=== PATIENT | male | born 1975 | race Caucasian/White ===

== ENCOUNTER 2020-03-07 01:14 | Emergency (ER) | payer OTHER, SELFPAY ==
[2020-03-07 01:15] VITALS: BP 138/91; PULSE 89; RESP 17; TEMP 37.1; O2SAT 100; BMI 20.7
--- NOTE | 2020-03-07 01:27 | CT_ITS ---
We are attempting to reach an attending provider to discuss findings. An addendum with communication details will be sent when the communication is complete. STUDY: CT SOFT TISSUE NECK WITH CONTRAST REASON FOR EXAM: Male, 44 years old. LT SIDED SORE THROAT AND DIFFICULTY SWALLOWING -- HX:SMOKER RADIATION DOSAGE (If Supplied By Facility): CTDIvol = ( 13.83 ) mGy, DLP = ( 404.38 ) mGycm TECHNIQUE: The patient was scanned in a multi-detector CT scanner. High resolution transaxial imaging was performed following intravenous administration of IV 75mL Isovue-370. Sagittal and coronal images were reconstructed. Individualized dose optimization techniques were used for this CT. COMPARISON: None. FINDINGS: Normal bilateral parotid glands. Normal bilateral national secretary spaces. Normal bilateral carotid spaces. Normal bilateral sublingual and submandibular glands and spaces. Subcentimeter short axis cervical chain lymph nodes. There is heterogeneous enlargement of the left tonsillar region there is edema and stranding of the soft tissues extending inferiorly to the level of the left aryepiglottic fold. There is mass effect on the airway in the oral pharynx left to right. There is small amount of fluid noted anterior to the upper cervical spine. There is no significant rim enhancement identified. The epiglottis does not appear significantly thickened. Evaluation of the left tonsillar region is limited by streak artifact from dental hardware. There is calcifications within the left tonsillar region. Within the region of heterogeneity there is a 1.4 cm low-attenuation collection with limited evaluation due to streak artifact. This may represent a smaller phlegmon/abscess. Normal bilateral lobes of the thyroid gland. Emphysematous changes within the visualized upper lungs. Mild paranasal sinus disease. Straightening of the normal cervical lordosis. Dental disease, follow-up with patient''s dentist recommended. CT/Soft Tissue Neck WITH Contrast IMPRESSION: There is heterogeneous enlargement of the left tonsil with [id number] mass effect on the airway. Extends towards the tongue base. There is extension of the edema and stranding inferiorly to the level of the left aryepiglottic fold. Findings concerning for infectious inflammatory process. There is streak artifact from patient''s dental hardware. There is a low-attenuation collection within the left tonsil region which would be concerning for phlegmon or early abscess limited by streak. There is fluid seen within region anterior to the cervical spine region concerning for retropharyngeal edema -- phlegmon. There is no significant enhancement identified however streak artifact does limit evaluation. Correlate clinically and recommend follow-up to ensure resolution. Likely reactive lymphadenopathy. Above findings likely are infectious inflammatory however underlying neoplastic process cannot be excluded and recommend follow-up imaging to ensure complete resolution. Emphysematous changes within the visualized lung connolly. Electronically Signed: Dennis Plasencia, at 2:35 EDT Tel , Service support ,
[2020-03-07] MEDS: 0.9% Normal Saline 1,000 ML 1000 ML IV (01:46)
[2020-03-07] MEDS: Ondansetron 4 MG/2 ML Vial IV (01:47)
[2020-03-07] MEDS: dexAMETHasone 10 MG/ML Vial IV (01:47)
[2020-03-07] MEDS: Morphine 4 MG/ML Syringe IV (01:47)
[2020-03-07 01:56] LABS: Absolute Lymphocyte Count 1.96 X10^3/uL (0.83-4.51); Absolute Neutrophil Count 8.4 X10^3/uL (2.0-7.7); Basophil# 0.05 X10^3/uL; Basophil% 0.4 % (0-1); Eosinophil# 0.27 X10^3/uL; Eosinophils% 2.3 % (0-5); Hematocrit 40.5 % (40-54); Hemoglobin 14.1 g/dL (13.0-16.5); Lymphocyte # 1.96 X10^3/ul (4.0); Mean Corp Hgb Conc 34.8 g/dL (32-36); Mean Corpuscular Hgb 33.4 pg (27.0-32.0); Mean Platelet Vol. 11.1 fl (6.2-12.0); Monocyte# 0.78 X10^3/uL; Monocyte% 6.8 % (0-10); NRBC Flagged by Analyzer 0 % (0-5); Neutrophil # 8.43 X10^3/uL (2.7-7.7); Neutrophil % 73.2 % (47-70); Platelet Count 140 K/mm3 (150-450); RBC Distribution Width CV 12.2 % (11.6-14.6); RBC Distribution Width SD 43.2 fl (35.1-43.9); Red Blood Count 4.22 M/mm3 (4.6-6.2); White Blood Count 11.5 K/mm3 (4.4-11.0)
[2020-03-07 02:10] LABS: Anion Gap 4 (5-15); BUN 17 mg/dL (7-18); BUN/Creat Ratio 17.5 RATIO (10-20); Calcium,Total 8.8 mg/dL (8.5-10.1); Chloride 106 mmol/L (98-107); Creatinine, Serum 0.97 mg/dL (0.70-1.30); EST Glomerular Filtration Rate 90 mL/min (>60); Est Glom Filt Rate - Afr Amer 109 mL/min (>60); Estimated Creatinine Clearance 100.05 ml/min; Glucose 124 mg/dL (74-106); Potassium 4.6 mmol/L (3.5-5.1); Sodium Level 139 mmol/L (136-145)
--- NOTE | 2020-03-07 02:55 | ED.VISSUMM ---
- ER Visit Summary Date of Service: 03/07/20 Chief Complaint: Sore throat History of Present Illness: The patient is a 44 M who sees Melo Lyman. He reports he is a sore that began 2 days ago. He describes a sharp pain is 10 of 10 worsening to 10 currently. Is worsened by swallowing. Is relieved by ibuprofen. He denies fever, but has had chills. He denies any cough or difficulty breathing. Physical Examination: Vitals: Stable. Afebrile. General: Well-nourished and well-developed. Head: Normocephalic atraumatic. HEENT: Patient has swelling of the left tonsil that is prominent with uvular shift. There is erythema. There is no swelling of the soft palate. He has enlargement of the uvula with edema as well. There is tender anterior cervical lymphadenopathy. Neck: Supple. No JVD. Cardiovascular: Regular rate and rhythm. No murmurs. Respiratory: No respiratory distress. Clear to auscultation bilaterally. Abdominal: Soft, nontender, nondistended, normal bowel sounds. No guarding, rebound, or peritoneal signs. Back: Nontender. Extremities: Nontender, no edema. Skin: Normal color, no rash. Neurologic: Alert and oriented ?3. Cranial nerves II through XII are intact. Normal strength and sensation. Psych: Normal affect. Test Results: CBC shows a white count of 11.5 with platelets of 140, 7 neutrophils 73, lymphs at the 17. Chem-7 shows a glucose of 124. Clinical Impression(s) from Imaging Studies Soft Tissue Neck CT 03/07/20 01:27 IMPRESSION: There is heterogeneous enlargement of the left tonsil with stci-[id number]-[id number] mass effect on the airway. Extends towards the tongue base. There is extension of the edema and stranding inferiorly to the level of the left aryepiglottic fold. Findings concerning for infectious inflammatory process. There is streak artifact from patient''s dental hardware. There is a low-attenuation collection within the left tonsil region which would be concerning for phlegmon or early abscess limited by streak. There is fluid seen within region anterior to the cervical spine region concerning for retropharyngeal edema -- phlegmon. There is no significant enhancement identified however streak artifact does limit evaluation. Correlate clinically and recommend follow-up to ensure resolution. Likely reactive lymphadenopathy. Above findings likely are infectious inflammatory however underlying neoplastic process cannot be excluded and recommend follow-up imaging to ensure complete resolution. Emphysematous changes within the visualized lung connolly. Electronically Signed: Dennis Plasencia, at 2:35 EDT Tel , Service support , ADDENDUM: 03/07/20 0245 IMPRESSION: There is heterogeneous enlargement of the left tonsil with [id number]-hm-[id number] mass effect on the airway. Extends towards the tongue base. There is extension of the edema and stranding inferiorly to the level of the left aryepiglottic fold. Findings concerning for infectious inflammatory process. There is streak artifact from patient''s dental hardware. There is a low-attenuation collection within the left tonsil region which would be concerning for phlegmon or early abscess limited by streak. There is fluid seen within region anterior to the cervical spine region concerning for retropharyngeal edema -- phlegmon. There is no significant enhancement identified however streak artifact does limit evaluation. Correlate clinically and recommend follow-up to ensure resolution. Likely reactive lymphadenopathy. Above findings likely are infectious inflammatory however underlying neoplastic process cannot be excluded and recommend follow-up imaging to ensure complete resolution. Emphysematous changes within the visualized lung connolly. N.B. : The above information has been verbally conveyed by Dennis Plasencia to Ketan Ibrahim MD, on 03/07/2020 02:38:41 (ET). Electronically Signed: Dennis Plasencia, at 2:35 EDT Tel , Service support , Emergency Department Course and Treatment: Patient had an IV placed. Is given morphine, dexamethasone, Zofran, and Unasyn IV. A throat culture was sent. On repeat exam patient is able to lay flat and tolerate his secretions without a difficulty. He has not been hypoxic while here. Treatment Plan: Patient was discussed with Dr. Morales. He would like him to follow-up in 2 days for another exam. He will be discharged on Augmentin, Percocet, and prednisone. Return to the emergency department for any worsening symptoms. Disposition: To home in [facility] and stable condition. Impression: 1. Left peritonsillar abscess. 2. Uvulitis. This note was generated with [employer] dictation software. It may contain incorrect words, spelling, and punctuation that were not noted in review of the chart prior to signing ED Disposition - Plan for ED Patient: Instructions: ED Peritonsillar Abscess Prescriptions: Amox/Clavulanate Tablet [Augmentin Tablet] 875 mg PO Q12H #20 tablet Prednisone [Deltasone] 40 mg PO DAILY #10 tablet Oxycodone HCl/Acetaminophen [Percocet 5/325] 1 tablet PO Q6H PRN PRN 3 Days #12 tablet PRN Reason: Pain Referrals: Dawson Morales MD [STAFF PHYSICIAN] - 2 Days
[2020-03-07 03:15] VITALS: BP 121/74; PULSE 71; RESP 18; O2SAT 96
== END 2020-03-07 03:17 | disposition home or self-care (01) ==
LOC: ED 01:41
PROVIDERS: Emergency Provider Emergency Medicine
DX: J36 Peritonsillar abscess (principal); K12.2 Cellulitis and abscess of mouth; Z72.0 Tobacco use
CPT/HCPCS: 70491; 80048; 85025; 87070; 96365; 96375; 99283; J7030; Q9967; A4216; J0295; J2405